=== PATIENT | female | born 1985 | race Caucasian/White ===

== ENCOUNTER 2017-08-07 05:44 | Inpatient (IN) | payer OTHER ==
[~2017-08-07] VITALS: Ht 162.6 cm; Wt 84.8 kg
[2017-08-08] MEDS ORDERED: BICARSIM80 MG PO (12:29)
[2017-08-08] MEDS ORDERED: ZOFRAN4 MG PO (12:29)
== END 2017-08-08 13:12 | disposition home or self-care (01) | DRG 766 ==
LOC: OB 05:44
PROVIDERS: ADMIT Obstetrics & Gynecology
PROC: 10D00Z1 Extraction of Products of Conception, Low, Open Approach (ICD-10-PCS; principal; 2017-08-07 07:30)
DX: O34.211 Maternal care for low transverse scar from previous cesarean delivery (principal); N85.8 Other specified noninflammatory disorders of uterus; Z3A.40 40 weeks gestation of pregnancy; Z37.0 Single live birth; Z88.5 Allergy status to narcotic agent
CPT/HCPCS: 36415; 81001; 82800; 85014; 85018; 85025; C9113; J0690; J1885; J2405; J2550; J2590; J2765; J7120